=== PATIENT | male | born 1940 | race Two or more races ===

== ENCOUNTER 2018-06-23 05:01 | Day surgery (SDC) | payer MEDICARE, BC ==
[2018-06-23] MEDS ORDERED: CEFAZOLIN SODIUM/DEXTROSE,ISO 50 ML IV ONE (05:43)
[2018-06-23] MEDS ORDERED: ANESTHESIA TRAY IN PYXIS 1 EA TRAY MC ONE (05:56)
[2018-06-23] MEDS ORDERED: LIDOCAINE HCL/PF 1% 30 ML SDV ONE (05:56)
[2018-06-23] MEDS ORDERED: BUPIVACAINE 0.5 % PF 150 MG/30 ML VIAL ONE (05:56)
[2018-06-23] MEDS ORDERED: SEVOFLURANE 250 ML BOTTLE IH ONE ×2 (05:56→06:21)
[2018-06-23] MEDS ORDERED: BACITRACIN 50000 UNITS/VIAL ONE (05:56)
[2018-06-23] MEDS ORDERED: FENTANYL PF 100MCG/2ML AMPUL ONE (06:21)
[2018-06-23] MEDS ORDERED: MIDAZOLAM HCL 2 MG/2ML VIAL ONE (06:21)
[2018-06-23] MEDS ORDERED: DESFLURANE 240 ML BOTTLE IH ONE (06:22)
== END 2018-06-23 08:50 | disposition home or self-care (01) ==
LOC: DS 05:01
PROVIDERS: ATTEND Specialist
DX: S66.211A Strain of extensor muscle, fascia and tendon of right thumb at wrist and hand level, initial encounter (principal); M77.8 Other enthesopathies, not elsewhere classified; M65.841 Other synovitis and tenosynovitis, right hand; M24.041 Loose body in right finger joint(s); X58.XXXA Exposure to other specified factors, initial encounter; Y93.89 Activity, other specified; Y92.89 Other specified places as the place of occurrence of the external cause; Y99.8 Other external cause status
CPT/HCPCS: A6402; J0690; J1100; J2250; J2704; J3010; J3490

== ENCOUNTER 2019-02-06 05:00 | Inpatient (IN) | payer OTHER ==
[~2019-02-06] VITALS: Ht 182.9 cm; Wt 84.1 kg
[2019-02-06] VITALS (9 sets, daily range): BP systolic 120–157; BP diastolic 77–91
--- NOTE | 2019-02-06 05:10 | NUR ---
RN OPEN NOTES RECEIVED PATIENT AMB FOR DAY SURGERY WITH FAMILY AT BEDSIDE. A/OX4. NO SIGNS OF DISTRESS OR DISCOMFORT. BREATHING EVEN AND UNLABORED. ORIENTED PATIENT TO UNIT AND ROOM. CONSENT FORMS SIGNED. STARTED IV ACCESS IN LAC. BED IN LOW LOCKED POSITION WITH SIDE RAILS X2. CALL LIGHT WITHIN REACH. WILL CONTINUE TO MONITOR.
[2019-02-06] MEDS ORDERED: CEFAZOLIN 1 GM in IV D5W 50 ML IV ONE (05:30)
[2019-02-06] MEDS ORDERED: TAMS-12 PO (06:10)
[2019-02-06] MEDS ORDERED: FINA5TAB11 PO (06:10)
[2019-02-06] MEDS ORDERED: GABA800T11 PO (06:10)
[2019-02-06] MEDS ORDERED: ESZO3TAB27 PO (06:10)
[2019-02-06] MEDS ORDERED: EZET10TA16 PO (06:10)
[2019-02-06] MEDS ORDERED: METH2.5T PO (06:10)
[2019-02-06] MEDS ORDERED: ASPI-605 PO (06:10)
--- NOTE | 2019-02-06 06:15 | NUR ---
RN CLOSING NOTES PATIENT WENT DOWN TO OR VIA GURNEY IN STABLE CONDITION WITH FAMILY AT BEDSIDE. WILL ENDORSE TO AM SHIFT FOR DANISH.
[2019-02-06] MEDS ORDERED: FENTANYL PF 100MCG/2ML AMPUL ONE ×2 (06:20→09:16)
[2019-02-06] MEDS ORDERED: MIDAZOLAM HCL 2 MG/2ML VIAL ONE (06:20)
[2019-02-06] MEDS ORDERED: PSYL660P17 PO (06:21)
[2019-02-06] MEDS ORDERED: SCOPOLAMINE HBR 1 EA PATCH.TD72 TD ONE (06:21)
[2019-02-06] MEDS ORDERED: CHOL200026 PO (06:21)
[2019-02-06] MEDS ORDERED: MORPHINE SULFATE/PF 10 MG/10ML (1MG/ML) AMPUL ONE (06:21)
[2019-02-06] MEDS ORDERED: BETA1TAB18 PO (06:21)
[2019-02-06] MEDS ORDERED: MULT1TAB73 PO (06:21)
[2019-02-06] MEDS ORDERED: UBID100C13 PO (06:21)
[2019-02-06] MEDS ORDERED: DOCU100T9 PO (06:21)
[2019-02-06] MEDS ORDERED: MULT-465 PO (06:21)
[2019-02-06] MEDS ORDERED: GLUC-228 PO (06:21)
[2019-02-06] MEDS ORDERED: DOXY25TA55 PO (06:21)
[2019-02-06] MEDS ORDERED: MAGN400T8 PO (06:21)
[2019-02-06] MEDS ORDERED: IBUP200C5 PO (06:21)
[2019-02-06] MEDS ORDERED: BUPIVACAINE 0.5 % PF 150 MG/30 ML VIAL ONE (06:33)
[2019-02-06] MEDS ORDERED: ANESTHESIA TRAY IN PYXIS 1 EA TRAY MC ONE (06:33)
[2019-02-06] MEDS ORDERED: BACITRACIN 50000 UNITS/VIAL ONE (06:34)
[2019-02-06] MEDS ORDERED: TRANEXAMIC ACID 3,000 MG in SODIUM CHLORIDE IRRIG SOLUTION 70 ML IR ONE (07:00)
[2019-02-06] MEDS ORDERED: BUPIVACAINE MPF 0.5% W/EPI INJ 30 ML VIAL ONE (08:41)
[2019-02-06] MEDS ORDERED: HYDROMORPHONE 1 MG/1 ML DISP.SYRIN ONE (09:01)
--- NOTE | 2019-02-06 10:15 | NUR ---
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 dressing to right lower extremity intact with scd to ble in place. orders carried out and acknowledged. f/c intact and draining with clear yellow urine. no c/o pain at this time. place pt on tele sr=70's. family at bedside. oriented to room and surroundings. no apparent distress noted. vss. instructed to call for assistance.
[2019-02-06] MEDS ORDERED: TYLENOL 650 MG TABLET PO PRN (10:30)
[2019-02-06] MEDS ORDERED: diphenhydrAMINE HCL 25 MG CAPSULE PO PRN (10:30)
[2019-02-06] MEDS ORDERED: COLACE 250 MG CAPSULE PO PRN (10:30)
[2019-02-06] MEDS ORDERED: ONDANSETRON HCL/PF 4 MG/2 ML VIAL IV PRN (10:30)
[2019-02-06] MEDS ORDERED: ZOFRAN 4mg/2ML IV PRN (10:30)
[2019-02-06] MEDS ORDERED: SENOKOT 8.6 MG TABLET PO PRN (10:30)
[2019-02-06] MEDS ORDERED: DULCOLAX 10 MG/SUPP.RECT RC PRN (10:30)
[2019-02-06] MEDS: IV D5/0.45 NACL 1,000 ML IV PRN (10:36)
--- NOTE | 2019-02-06 10:45 | NUR ---
tele room service supervisor: notes called pharmacy to verify if dr. flanagan has called for supervisor plate forming and informed me no supervisor plate forming ordered by dr. flanagan per shannan (pharmacist). pt made aware.
[2019-02-06] MEDS ORDERED: DOCUSATE SODIUM 100 MG CAPSULE PO SCH (11:00)
[2019-02-06] MEDS: GABAPENTIN 400 MG CAPSULE PO SCH ×2 (11:35→17:00)
[2019-02-06] MEDS ORDERED: CYCL5TAB PO (11:58)
--- NOTE | 2019-02-06 12:00 | NUR ---
tele ferryboat operator: notes lunch served. family remains at bedside. no c/o pain or any discomfort. will continue to monitor.
[2019-02-06 12:14] LABS: HEMOGLOBIN 13.6 g/dL (13.5-17.5)
--- NOTE | 2019-02-06 14:00 | NUR ---
tele demurrage man: p.t. eval up with p.t. using fww, christie. well. cpm applied after tx. kept comfortable. instructed to call for assistance. will continue to monitor.
[2019-02-06] MEDS: MULTIVITAMIN/LUTEIN/MINERALS 1 TAB PO SCH (15:22)
--- NOTE | 2019-02-06 16:00 | NUR ---
tele scooper: notes pt request for cpm to be taken out. removed cpm with 1 person assist. pt still not complaining of pain. instructed to call for assistance. will continue to monitor.
[2019-02-06] MEDS ORDERED: MAG HYDROX/AL HYDROX/SIMETH 30 ML UDC PO PRN (16:30)
[2019-02-06] MEDS: oxyCODONE IR immediate release 5 MG PO PRN (17:00)
[2019-02-06] MEDS: MAGNESIUM OXIDE 400 MG TABLET PO SCH (17:00)
[2019-02-06] MEDS: TAMSULOSIN 0.4 MG CAP.SR.24H PO SCH (17:00)
[2019-02-06] MEDS ORDERED: Medication Not On Formulary EA (Ubidecarenone (Coq-10) 200 MG) PO SCH (17:00)
[2019-02-06] MEDS: DOCUSATE SODIUM 100 MG CAPSULE PO SCH (17:00)
--- NOTE | 2019-02-06 17:00 | NUR ---
tele human resources administrator: notes pt c/o 11/02 right knee pain, medicated with oxycodone 10mg po as ordered. instructed to call for assistance. will continue to monitor.
[2019-02-06] MEDS: ANCEF 1 G in IV D5W 50 ML IV SCH (17:17)
[2019-02-06] MEDS: HYDROMORPHONE 1 MG/1 ML DISP.SYRIN SQ PRN ×2 (17:41→21:14)
--- NOTE | 2019-02-06 18:00 | NUR ---
tele medical biller/coder: notes pt feels better 5/10 as stated. instructed to call for assistance. will continue to monitor.
--- NOTE | 2019-02-06 18:11 | NUR ---
tele supervisor show operations: notes pt feels much better 4/10 right knee pain. instructed to call for assistance. will continue to monitor.
--- NOTE | 2019-02-06 18:52 | NUR ---
tele game technician: notes resting comfortable in bed. no distress noted. needs attended. instructed to call for assistance. will monitor.
--- NOTE | 2019-02-06 19:25 | NUR ---
RN OPEN NOTES RECEIVED PATIENT AWAKE IN BED. A/OX4. NO SIGNS OF DISTRESS OR DISCOMFORT. BREATHING EVEN AND UNLABORED. ON TELE MONITORING WITH SR 63 NOTED. IV ACCESS IN LAC WITH D5 1/2 NS INFUSING. DRESSING ON R LEG C/D/I. BED IN LOW LOCKED POSITION WITH SIDE RAILS X2. CALL LIGHT WITHIN REACH. WILL CONTINUE TO MONITOR.
[2019-02-06] MEDS: FAMOTIDINE (20 MG) 20 MG TABLET PO SCH (21:12)
[2019-02-06] MEDS: FINASTERIDE (5 MG) 5 MG TABLET PO SCH (21:12)
[2019-02-06] MEDS ORDERED: ESZOPICLONE 2 MG PO SCH (22:00)
[2019-02-06] MEDS ORDERED: AMBIEN 5 MG TABLET PO PRN (22:00)
[2019-02-07] VITALS: BP 132/82
[2019-02-07] MEDS: ANCEF 1 G in IV D5W 50 ML IV SCH (00:18)
[2019-02-07] MEDS: oxyCODONE IR immediate release 5 MG PO PRN ×3 (00:18→14:10)
[2019-02-07] MEDS: IV D5/0.45 NACL 1,000 ML IV PRN (00:26)
[2019-02-07 04:00] VITALS: BP 134/79
[2019-02-07] MEDS: HYDROMORPHONE 1 MG/1 ML DISP.SYRIN SQ PRN ×3 (05:54→17:29)
[2019-02-07 07:10] LABS: CALCIUM, SERUM 8.6 mg/dL (8.5-10.1); PHOSPHORUS 3.3 mg/dL (2.5-4.9); POTASSIUM 4.4 mmol/L (3.5-5.1)
[2019-02-07 07:11] LABS: BASOPHILS % (AUTO) 0.2 % (0.0-2.0); EOSINOPHILS % (AUTO) 0.2 % (0.0-6.0); HEMATOCRIT 40 % (39-51); HEMOGLOBIN 13.3 g/dL (13.5-17.5); LYMPHOCYTES # (AUTO) 0.8 /CMM (0.8-4.8); LYMPHOCYTES % (AUTO) 5.1 % (20.0-44.0); MEAN CORPUSCULAR HGB CONC 33 g/dl (31.0-36.0); MEAN CORPUSCULAR VOLUME 97 fL (80-96); MONOCYTES # (AUTO) 1.4 /CMM (0.1-1.30); MONOCYTES % (AUTO) 8.7 % (2.0-12.0); NEUTROPHILS # (AUTO) 13.7 /CMM (1.8-8.9); NEUTROPHILS % (AUTO) 85.8 % (43.0-81.0); PLATELET COUNT (AUTO) 271 /CMM (150-450); RED BLOOD CELL COUNT(AUTO) 4.13 MIL/uL (4.5-6.0)
--- NOTE | 2019-02-07 07:21 | NUR ---
RN OPEN NOTES RECEIVED PATIENT AWAKE IN BED. A/OX4. NO SIGNS OF DISTRESS OR DISCOMFORT. BREATHING EVEN AND UNLABORED. ON TELE MONITORING WITH SR 63 NOTED. IV ACCESS IN LAC WITH D5 1/2 NS INFUSING. DRESSING ON R LEG C/D/I. BED IN LOW LOCKED POSITION WITH SIDE RAILS X2. CALL LIGHT WITHIN REACH. WILL CONTINUE TO MONITOR. Addendum: 02/07/19 at 0723 by OJ URIARTE RN ERROR. WRONG TIME DOCUMENTED.
--- NOTE | 2019-02-07 07:23 | NUR ---
RN CLOSING NOTES PATIENT RESTING COMFORTABLY IN BED. A/OX4. NO SIGNS OF DISTRESS OR DISCOMFORT. BREATHING EVEN AND UNLABORED. ON TELE MONITORING WITH SR 65 NOTED. IV ACCESS IN LAC WITH D5 1/2 NS INFUSING. DRESSING ON R LEG C/D/I. ALL NEEDS MET. NO SIGNIFICANT CHANGES THROUGH THE NIGHT. PAIN EFFECTIVELY MANAGED WITH PRN PAIN MEDS. PATIENT PUT ON CPM FOR APPROX 2HRS DURING SHIFT AND TOLERATED WELL . BED IN LOW LOCKED POSITION WITH SIDE RAILS X2. CALL LIGHT WITHIN REACH. ENDORSED TO AM SHIFT FOR DANISH.
--- NOTE | 2019-02-07 07:30 | NUR ---
tele director media: initial assessment received pt in bed awake, a/ox4. f/c draining to gravity. no c/o pain at this time. instructed to call for assistance. will continue to monitor.
[2019-02-07 08:00] VITALS: BP 118/74
[2019-02-07] MEDS: TAMSULOSIN 0.4 MG CAP.SR.24H PO SCH ×2 (08:39→17:28)
[2019-02-07] MEDS: ASPIRIN EC 325 MG TABLET.DR PO SCH ×2 (08:39→17:28)
[2019-02-07] MEDS: MULTIVIT W/MINERALS 1 TAB TABLET PO SCH (08:39)
[2019-02-07] MEDS: DOCUSATE SODIUM 100 MG CAPSULE PO SCH ×2 (08:39→17:29)
[2019-02-07] MEDS: CHOLECALCIFEROL 1,000 UNIT TABLET (VIT D3) PO SCH (08:39)
[2019-02-07] MEDS: GABAPENTIN 400 MG CAPSULE PO SCH ×2 (08:39→17:28)
[2019-02-07] MEDS: EZETIMIBE 10 MG TABLET PO SCH (08:40)
[2019-02-07] MEDS: PSYLLIUM SEED 1 PKT PACKET PO SCH (08:40)
[2019-02-07] MEDS: FAMOTIDINE (20 MG) 20 MG TABLET PO SCH ×2 (08:40→21:21)
[2019-02-07] MEDS: MAGNESIUM OXIDE 400 MG TABLET PO SCH ×2 (08:40→17:28)
[2019-02-07] MEDS: MULTIVITAMIN/LUTEIN/MINERALS 1 TAB PO SCH (09:00)
[2019-02-07] MEDS ORDERED: ASPIRIN 325 MG TABLET PO SCH (09:00)
[2019-02-07] MEDS ORDERED: ASPIRIN EC 81 MG TABLET.DR PO SCH ×2 (09:00)
--- NOTE | 2019-02-07 09:00 | NUR ---
m/s right of way clearer: notes pt is on mvi and occuvite, pharmacist notified, spoke to shannan.
--- NOTE | 2019-02-07 09:30 | NUR ---
tele asbestos removal worker: ortho f/u seen by ellis pantoja and plan to change the dressing tomorrow.
--- NOTE | 2019-02-07 09:45 | NUR ---
tele pump servicer helper: notes c/o 11/02 right knee pain after p.t. tx, medicated with oxycodone 10mg po as ordered. pt back to bed with cpm on. instructed to call for assistance. will continue to monitor.
--- NOTE | 2019-02-07 10:17 | NUR ---
tele hospice director: notes tele removed post 24 hours as ordered.
--- NOTE | 2019-02-07 10:45 | NUR ---
m/s director of professional services: notes pt verbalized 3/10 relief of his pain. instructed to call for assistance. will monitor.
--- NOTE | 2019-02-07 11:10 | NUR ---
m/s verification rep: notes dr. flanagan called with order to lillie ruelas at 0600 in the morning. pt made aware.
--- NOTE | 2019-02-07 11:43 | NUR ---
m/s qa tech: pain management f/u seen by dr. flanagan at this time. medicated with dilaudid 1mg sq to right arm due c/o 10/10 right knee pain. instructed to call for assistance. will monitor.
--- NOTE | 2019-02-07 11:50 | NUR ---
m/s community service organization director: md visit seen and examined by dr. smith.
--- NOTE | 2019-02-07 12:13 | NUR ---
m/s nutrition aide: notes pt having lunch at this time with hob elevated. voiced no discomfort. instructed to call for assistance.
--- NOTE | 2019-02-07 14:10 | NUR ---
m/s java enterprise architect: notes pt c/o 11/02 right knee pain, medicated with oxycodone 10mg po as ordered. instructed to call for assistance. will continue to monitor.
--- NOTE | 2019-02-07 15:10 | NUR ---
m/s academic counselor: notes pt sounds asleep at this time. no distress noted. call light within reach.
[2019-02-07 16:00] VITALS: BP 120/71
--- NOTE | 2019-02-07 16:20 | NUR ---
m/s charge attendant: notes visiting at this time.
--- NOTE | 2019-02-07 17:29 | NUR ---
m/s rn postpartum: notes c/o 10/10 right knee pain, medicated with dilaudid 1mg sq to left abdomen. remains at bedside. instructed to call for assistance. will monitor.
--- NOTE | 2019-02-07 17:59 | NUR ---
m/s energy conservation director: notes pt having dinner and verbalized relief of pain. remains at bedside. instructed to call for assistance. will monitor.
--- NOTE | 2019-02-07 18:36 | NUR ---
m/s real estate firm manager: notes resting comfortable in bed. needs attended. in no apparent distress noted. will continue to monitor.
--- NOTE | 2019-02-07 19:10 | NUR ---
m/s supervisor dehydrogenation: notes bedside report given to gregory (ruby) for continuity of care.
[2019-02-07 20:00] VITALS: BP 100/71
--- NOTE | 2019-02-07 20:07 | NUR ---
MS/RN AT 1930 RECEIVED PATIENT IN BED AWAKE, ALERT, ORIENTED, COMFORTABLE, NO C/O PAIN, NO DISTRESS NOTED, CALL LIGHT IN REACH. WILL MONITOR.
[2019-02-07] MEDS: FINASTERIDE (5 MG) 5 MG TABLET PO SCH (21:21)
[2019-02-08] MEDS: oxyCODONE IR immediate release 5 MG PO PRN (05:10)
--- NOTE | 2019-02-08 05:40 | NUR ---
MS/RN IV GOT PULLED OUT, INSERTED NEW IV AT LEFT F/A G22.
--- NOTE | 2019-02-08 06:15 | NUR ---
MS/FRN F/C WAS REMOVED ORDERED.
--- NOTE | 2019-02-08 06:19 | NUR ---
MS/RN PATIENT IS AWAKE, COMFORTABLE, NO DISTRESS NOTED, ALL NEEDS ATTENDED AT THIS TIME, WILL CONTINUE TO MONITOR.
--- NOTE | 2019-02-08 07:15 | NUR ---
MS RN OPENING NOTES RECEIVED PATIENT IN BED ASLEEP, AROUSABLE TO VERBAL AND TACTILE STIMULI. NO SOB. HOB ELEVATED. S/P RT TKA WITHOUT C/O PAIN NOR DISCOMFORT AT THIS TIME. RT LEG DRESSING INTACT. S/P PATTEN CATH REMOVAL FROM NOC SHIFT. BED IN LOWEST POSITION, LOCKED. CALL LIGHT WITHIN REACH.
[2019-02-08 08:00] VITALS: BP 106/72
--- NOTE | 2019-02-08 08:20 | NUR ---
MS RN NOTE PATIENT VOIDED X1, YELLOW COLORED URINE.
[2019-02-08] MEDS: DOCUSATE SODIUM 100 MG CAPSULE PO SCH ×2 (08:50→17:36)
[2019-02-08] MEDS: EZETIMIBE 10 MG TABLET PO SCH (08:50)
[2019-02-08] MEDS: MULTIVIT W/MINERALS 1 TAB TABLET PO SCH (08:50)
[2019-02-08] MEDS: CHOLECALCIFEROL 1,000 UNIT TABLET (VIT D3) PO SCH (08:50)
[2019-02-08] MEDS: FAMOTIDINE (20 MG) 20 MG TABLET PO SCH ×2 (08:50→21:12)
[2019-02-08] MEDS: TAMSULOSIN 0.4 MG CAP.SR.24H PO SCH ×2 (08:50→17:35)
[2019-02-08] MEDS: PSYLLIUM SEED 1 PKT PACKET PO SCH ×2 (08:50→17:36)
[2019-02-08] MEDS: ASPIRIN EC 325 MG TABLET.DR PO SCH ×2 (08:50→17:35)
[2019-02-08] MEDS: GABAPENTIN 400 MG CAPSULE PO SCH ×2 (08:50→17:36)
[2019-02-08] MEDS: MAGNESIUM OXIDE 400 MG TABLET PO SCH ×2 (08:50→17:36)
--- NOTE | 2019-02-08 14:23 | NUR ---
MS RN NOTES ASSISTED PATIENT TO THE BATHROOM AND BACK TO BED. PATIENT DID NOT WANT TO USE THE BEDSIDE COMMODE BECAUSE HE SAID "HE WILL TAKE A WHILE." INSTRUCTED AND EDUCATED PATIENT TO ALWAYS CALL FOR ASSISTANCE DUE TO UNSTEADY GAIT AND NOT TO GET UP UNASSISTED. BED IN LOWEST POSITION, LOCKED. BED ALARM ON. CALL LIGHT WITHIN REACH.
--- NOTE | 2019-02-08 15:30 | NUR ---
MS RN NOTE PATIENT SEEN BY DR. PERKINS. INFORMED MD ABOUT PATIENT SEEING WORMS IN CEILING. PATIENT INTERVIEWED AND WAS ABLE TO ANSWER ALL QUESTIONS WITH ORIENTATION OF X4. PER DR. PERKINS, HE WILL REDUCE THE PAIN MEDICATION AND PER PATIENT IT WAS THE FIRST TIME HE HAD OXY.
--- NOTE | 2019-02-08 15:40 | NUR ---
MS RN NOTES DR. PERKINS DISCUSSED WITH PATIENT AND AND INFORMED PATIENT THAT HE IS NOT SAFE TO GO HOME AND THAT HE WILL HAVE TO GO TO A REHAB, PER SHE HAD ALREADY SPOKE TO PATIENT PRIOR SPEAKING WITH CASE MANAGEMENT FOR PLACEMENT.
[2019-02-08 16:00] VITALS: BP 119/70
--- NOTE | 2019-02-08 16:25 | NUR ---
MS RN NOTES PATIENT NOTED SITTING ON THE ENTRANCE OF THE BATHROOM FLOOR WITH HIS BACK FACING THE TOILET SEAT. UPON INTERVIEW, PATIENT STATED HE WAS GOING INTO THE BATHROOM, LOST HIS BALANCE AND SLIPPED. PER PATIENT, HE LANDED ON HIS BUTTOCKS AREA AND HAD "TWISTED AROUND" AND LEFT HIP HIT THE DOOR FRAME. PATIENT STATED HE DIDN'T CALL FOR ASSISTANCE. HE SAID HE WAS TRYING TO DO IT ON HIS OWN. PATIENT DENIES HITTING HIS HEAD AND ANY OTHER PARTS OF THE BODY. PATIENT ASSESSED AND ENVIRONMENT ASSESSED, FREE OF HAZARDS NOTED, PRIOR TO TRANSFER TO BED. PATIENT C/O PAIN 09/02 BUT REFUSED ANY PAIN MEDICATION AT THIS TIME. RE-EDUCATED PATIENT ABOUT CALLING FOR ASSISTANCE AT ALL TIMES AND RISKS AND BENEFITS OF IT. PATIENT STATED HE THOUGHT HE WAS ABLE TO DO IT AND APOLOGIZED FOR DOING IT ON HIS OWN. INTERVIEWED PATIENT AND ANSWERED QUESTIONS CORRECTLY WITH DATE, , CURRENT LOCATION, REASON FOR HOSPITALIZATION WITH ORIENTATION OF X4 NOTED[address] DR[address] WREN AND ARABELLA FERNÁNDEZ MADE AWARE OF FALL INCIDENT WITH N.O. NOTED AND CARRIED OUT FOR STAT RIGHT KNEE X-RAY AND PELVIS X-RAY. PATIENT CALLED AND INFORMED OF FALL INCIDENT AND APOLOGIZE TO ABOUT NOT ASKING FOR ASSISTANCE. BED IN LOWEST POSITION, LOCKED. BED ALARM ON. CALL LIGHT WITHIN REACH. FREQUENT VISUAL CHECK DONE.
[2019-02-08] MEDS ORDERED: HYDROMORPHONE 1 MG/1 ML DISP.SYRIN SQ PRN (16:30)
--- NOTE | 2019-02-08 19:00 | NUR ---
RN pedritosurdusty notes Pt is resting in bed comfortably. Pt is alert and oriented x4. Respiration is normal. No SOB. No nausea or vomiting. Pt denies any pain or discomfort at this time. IV sites at LFA # 22 is patent, intact and SL. Per AM nurse Pt fell today. X-ray pelvis result is negative, no fracture. Informed and instructed Pt to call for assistance. Pt verbalize understanding. Safety precautions is maintained. Bed at low position, brakes locked, side rails upx3, bed alarm is on and call light is within reach. Will continue to monitor.
--- NOTE | 2019-02-08 19:08 | NUR ---
MS RN CLOSING NOTES PATIENT RESTING COMFORTABLY IN BED. ALERT AND ORIENTED X4. NO SOB. C/O PAIN 5/10 BUT REFUSED PAIN MEDICATION WHEN OFFERED. SAMUEL CPM USE WELL. SAMUEL PHYSICAL THERAPY WELL. AMBULATORY WITH UNSTEADY GAIT REQUIRING STAFF ASSISTANCE TO STABILIZE BALANCE. RT LEG DRESSING INTACT WITH FIRST DRESSING CHANGED DONE TODAY BY PA. [facility] SL # 22 INTACT AND PATENT. S/P FALL, PELVIS XRAY RESULT: NO FRACTIRE. NO DISLOCATION AND RT KNEE X-RAY: INTACT RIGHT KNEE PROSTHESIS. REMINDED PATIENT TO ASK FOR ASSISTANCE AT ALL TIMES. ABLE TO VERBALIZE NEEDS. IN NO APPARENT DISTRESS. BED IN LOWEST POSITION, LOCKED. BED ALARM ON. ENDORSED TO ONCOMING SHIFT.
[2019-02-08 20:00] VITALS: BP 103/55
[2019-02-08] MEDS: FINASTERIDE (5 MG) 5 MG TABLET PO SCH (21:12)
--- NOTE | 2019-02-09 03:00 | NUR ---
RN medsurg notes Pt is sleeping in bed comfortably. No SOB. No S/S of distress noted. Instructed to call for assistance. Safety precautions is maintained all the time. Bed at low position, bed alarm is on and call light is within reach. Will continue to monitor.
--- NOTE | 2019-02-09 07:00 | NUR ---
RN medsurg notes Pt is resting in bed comfortably. Pt is alert and oriented X3. No SOB. No S/S of distress noted. Pt denies any pain or discomfort. IV sites at LFA# 22 is intact, patent and SL. Routine med were given as ordered. Kept Pt clean, dry and comfortable. All needs met and attended. Safety precautions is maintained all the time. bed at low position, brakes locked, side rails upx3, bed alarm on, call light is within reach. Will endorse to morning nurse for DANISH.
--- NOTE | 2019-02-09 07:44 | NUR ---
MS RN OPENING NOTES RECEIVED PATIENT IN BED ALERT AND AWAKE ORIENTED X4. PATIENT WITH EPISODE OF FORGETFULNESS. S/P FALL. PATIENT VERBALIZES ABOUT BEING FRUSTRATED AND WANTS TO BE HOME INSTEAD. RE-EDUCATED PATIENT REGARDING S/P FALL INCIDENT, S/P SX OF RT TKA. PATIENT VERBALIZES UNDERSTANDING. ASSISTED PATIENT TO THE BATHROOM WITH THE USE OF ASSISTIVE DEVICE. NOTED PATIENT WITH UNSTEADY GAIT. PRIOR TO THE USE OF BATHROOM, OFFERED URINAL AND BEDSIDE COMMODE BUT PATIENT REFUSED. PER PATIENT, " I WANT TO GO TO THE BATHROOM AND TRY TO DO THINGS ON MY OWN." DENIES ANY C/O PAIN NOR DISCOMFORT. NO SOB. BED IN LOWEST POSITION, LOCKED. BED ALARM ON. CALL LIGHT WITHIN REACH. BED SIDERAILS UP X3. FREQUENT VISUAL CHECK DONE.
[2019-02-09 08:00] VITALS: BP 112/69
[2019-02-09] MEDS: FAMOTIDINE (20 MG) 20 MG TABLET PO SCH ×2 (10:04→20:57)
[2019-02-09] MEDS: MULTIVIT W/MINERALS 1 TAB TABLET PO SCH (10:04)
[2019-02-09] MEDS: MAGNESIUM OXIDE 400 MG TABLET PO SCH ×2 (10:04→17:30)
[2019-02-09] MEDS: EZETIMIBE 10 MG TABLET PO SCH (10:04)
[2019-02-09] MEDS: GABAPENTIN 400 MG CAPSULE PO SCH ×2 (10:05→17:30)
[2019-02-09] MEDS: ASPIRIN EC 325 MG TABLET.DR PO SCH ×2 (10:05→17:30)
[2019-02-09] MEDS: CHOLECALCIFEROL 1,000 UNIT TABLET (VIT D3) PO SCH (10:05)
[2019-02-09] MEDS: PSYLLIUM SEED 1 PKT PACKET PO SCH ×2 (10:05→17:29)
[2019-02-09] MEDS: DOCUSATE SODIUM 100 MG CAPSULE PO SCH ×2 (10:05→17:30)
[2019-02-09] MEDS: TAMSULOSIN 0.4 MG CAP.SR.24H PO SCH ×2 (10:05→17:30)
[2019-02-09] MEDS ORDERED: ASPI-869 PO (14:48)
[2019-02-09 16:00] VITALS: BP 117/72
[2019-02-09] MEDS: oxyCODONE IR immediate release 5 MG PO PRN ×2 (18:50→22:30)
--- NOTE | 2019-02-09 19:20 | NUR ---
MS RN CLOSING NOTES PATIENT RESTING COMFORTABLY IN BED WATCHING TV. C/O PAIN, OXY GIVEN ORDERED. PATIENT REQUIRES STAFF ASSISTANCE D/T UNSTEADY GAIT. PENDING DISCHARGE D/T PENDING COVERAGE FROM INSURANCE. NO EPISODE OF FORGETFULNESS NOR CONFUSION DURING THE SHIFT. COMPLIANT WITH MOST ASPECT OF CARE. S/P FALL INCIDENT WITHOUT S/S OF INJURY OBSERVED. BED IN LOWEST POSITION, LOCKED. BED ALARM ON. CALL LIGHT WITHIN REACH. IN NO APPARENT DISTRESS. ABLE TO VERBALIZE NEEDS.
[2019-02-09 20:00] VITALS: BP 107/63
[2019-02-09] MEDS: FINASTERIDE (5 MG) 5 MG TABLET PO SCH (20:57)
--- NOTE | 2019-02-10 07:25 | NUR ---
MS RN OPENING NOTES RECEIVED PT IN BED, A/O X4. PT TOLERATING RA, WITH NO ACUTE RESPIRATORY DISTRESS. PT AMBULATORY WITH FWW AND 1 NURSE ASSIST. PT COMPLAINED OF 5/10 PAIN FROM R KNEE TO RIGHT UPPER THIGH TO THE HIP. PT DENIES ANY CONCERNS OR QUESTIONS AT THIS TIME. PIV LFA G22, FLUSHED WITH NS, INTACT AND OPERATIONAL. PT AWARE OF POSSIBLE DISCHARGE AND ONLY AWAITING FOR REHAB ACCEPTANCE AND INSURANCE. PT KEPT COMFORTABLE. CALL LIGHT KEPT WITHIN REACH. BED IN LOWEST, LOCKED POSITION WITH SR X3. WILL CONTINUE PLAN OF CARE.
[2019-02-10 08:00] VITALS: BP 118/79
[2019-02-10] MEDS: PSYLLIUM SEED 1 PKT PACKET PO SCH ×2 (08:19→16:35)
[2019-02-10] MEDS: CHOLECALCIFEROL 1,000 UNIT TABLET (VIT D3) PO SCH (08:22)
[2019-02-10] MEDS: TAMSULOSIN 0.4 MG CAP.SR.24H PO SCH ×2 (08:22→16:35)
[2019-02-10] MEDS: EZETIMIBE 10 MG TABLET PO SCH (08:23)
[2019-02-10] MEDS: MAGNESIUM OXIDE 400 MG TABLET PO SCH ×2 (08:23→16:35)
[2019-02-10] MEDS: MULTIVIT W/MINERALS 1 TAB TABLET PO SCH (08:23)
[2019-02-10] MEDS: FAMOTIDINE (20 MG) 20 MG TABLET PO SCH ×2 (08:23→20:11)
[2019-02-10] MEDS: DOCUSATE SODIUM 100 MG CAPSULE PO SCH ×2 (08:24→16:35)
[2019-02-10] MEDS: oxyCODONE IR immediate release 5 MG PO PRN ×2 (08:24→14:15)
[2019-02-10] MEDS: ASPIRIN EC 325 MG TABLET.DR PO SCH ×2 (08:24→16:35)
[2019-02-10] MEDS: GABAPENTIN 400 MG CAPSULE PO SCH ×2 (08:25→16:35)
--- NOTE | 2019-02-10 19:13 | NUR ---
MS RN CLOSING NOTES PT IN BED, A/O X4. PT TOLERATING RA, WITH NO ACUTE RESPIRATORY DISTRESS. PT AMBULATORY WITH FWW AND 1 NURSE ASSIST. PT DENIES ANY PAIN OR DISCOMFORT AT THIS TIME. PIV LFA G22, FLUSHED WITH NS, INTACT AND OPERATIONAL. PT TO BE DISCHARGE TONIGHT AT 8PM. ALL DISCHARGE PAPERS SIGNED. ALL NEEDS AND CARE PROVIDED. PT KEPT COMFORTABLE. CALL LIGHT KEPT WITHIN REACH. BED IN LOWEST, LOCKED POSITION WITH SR X3. ENDORSED TO JEWEL BLOCKER AND SAWYER NURSE FOR DISCHARGE AT 8.
--- NOTE | 2019-02-10 19:14 | NUR ---
MS RN OPENING NOTES Received patient anxiously waiting for ambulance. Patient is for discharge to a rehab facility. Discharge meds prescription given to patient, per patient is filling the prescription and will meet the patient at the facility. Per patient he is not aware of the delay of ambulance pickle solution maker. Patient on RA, no SOB noted. Kept on bed clean, dry and comfortable. Call light within easy reach. Offered snacks to patient, patient refused. Will continue to monitor accordingly. Ambulance ETA 1999.
--- NOTE | 2019-02-10 19:48 | NUR ---
MS RN NOTES Received a call from transportation, ETA delayed. New ETA 2029. Explained very well to patient, patient verbalized understanding. Offered drinks/snacks to patient, patient refused. Patient on bed comfortably watching TV.
[2019-02-10 19:53] VITALS: BP 119/81
--- NOTE | 2019-02-10 20:40 | NUR ---
MS CNC SET UP OPERATOR NOTES 2029 - [employer] EMT at bedside ready to pickle maker the patient. Report given. Per patient he will notify his . Patient in stable condition, no complaints made at this time. Discharge papers in patient's belongings. BP 119/81 mmHg, WI 92bpm, RR 18 CPM, T 98.7F, O2 sat 97% RA. 2036 - Patient left the facility at this time via gurney accompanied by 2 fur glosser.
== END 2019-02-10 20:37 | DRG 470 ==
LOC: DS 05:00 → MED 05:01 → TELE 10:56 → MED 02-07 10:20
PROVIDERS: ADMIT Student in an Organized Health Care Education/Training Program
PROC: 0SRC0J9 Replacement of Right Knee Joint with Synthetic Substitute, Cemented, Open Approach (ICD-10-PCS; principal; 2019-02-06)
DX: M17.11 Unilateral primary osteoarthritis, right knee (principal); E78.5 Hyperlipidemia, unspecified; G47.00 Insomnia, unspecified; M32.9 Systemic lupus erythematosus, unspecified; N40.0 Benign prostatic hyperplasia without lower urinary tract symptoms
CPT/HCPCS: 36415; 72190-TC; 73564-TC; 80048-TC; 83735-TC; 84100-TC; 85025-TC; 85027-TC; 86850-TC; 87081-TC; 88305-TC; 88311-TC; 97110-TC; 97116-TC; 97530-TC; 97760-TC; A4217; A6253; C1713; C1776; G0378; J0690; J1100; J1170; J2250; J2274; J2704; J3010; J3490; J7060; Q0163